=== PATIENT | female | born 1980 | race Caucasian/White ===

== ENCOUNTER 2022-12-30 12:32 | Outpatient (CLI) | payer BC, MEDICAID, SELFPAY ==
--- NOTE | 2022-12-30 13:30 | CT_ITS ---
WS: [id number] CT PARANASAL SINUSES HISTORY: evaluation of sinusis TECHNIQUE: Contiguous 2.5 mm axial images obtained through the sinuses. Images are reconstructed in s agittal and coronal planes. All CT scans at [facility] use at least one of these dose optimiz ation techniques: automated exposure control; mA and/or kV adjustment per patient size (includes targ eted exams where dose is matched to clinical indication); or iterative reconstruction. DLP: 464.68 mGy.cm COMPARISON: None available. Frontal sinuses: Normal. No air-fluid levels. Sphenoid sinus: Normal. Ethmoid sinuses: Very mild mucoperiosteal thickening in the ethmoid air cells, RIGHT greater than LEF T. Maxillary sinus: Moderate sized mucus retention cyst in the LEFT maxillary sinus. No air-fluid levels . Very small amount of mucoperiosteal thickening in the floor of the RIGHT maxillary sinus. Ostiomeatal unit: Patent ostiomeatal complexes. There is widening of the complexes from prior endosco pic surgery. Normal orbits and globes. No significant deviation of the nasal septum and no spurring. IMPRESSION: 1. No air-fluid levels within the paranasal sinuses. 2. Widely patent ostiomeatal complexes. Prior endoscopic surgery. 3. Moderate mucous retention cyst in the RIGHT maxillary sinus.
== END 2022-12-30 12:33 | disposition home or self-care (01) ==
LOC: RAD 12:32
PROVIDERS: Visit Provider Otolaryngology
DX: J32.9 Chronic sinusitis, unspecified (principal); J34.1 Cyst and mucocele of nose and nasal sinus
CPT/HCPCS: 70486

== ENCOUNTER 2023-02-07 10:09 | Day surgery (SDC) | payer BC, MEDICAID, SELFPAY ==
[2023-02-07] VITALS (9 sets, daily range): BP systolic 128–160; BP diastolic 79–98; PULSE 59–84; RESP 16–18; TEMP 36.1–36.5; O2SAT 92–100; BMI 30.6
[2023-02-07] MEDS: sodium chloride 0.9% 1,000 ML 30 ML IV (10:43)
--- NOTE | 2023-02-07 11:14 | ANES.PREANE2 ---
Pre-Anesthetic Assessment Height/Weight: Height 1.65 m Weight 83.461 kg Temp Pulse Resp BP Pulse Ox O2 Del Method 97.7 F 84 16 160/98 96 Room Air 02/07/23 10:32 02/07/23 10:32 02/07/23 10:32 02/07/23 10:32 02/07/23 10:32 02/07/23 10:32 Preop Diagnosis: Chronic sinusitis/deviated nasal septum/turbinate hypertrophy/ayo bullos Operation Date: 02/07/23 12:00 Proposed Procedures p Endoscopic Bilateral Antrostomy 13383,46983,[id number],69165,j32.9,j34.89,J31.0,j34.2,J34.3(Bilateral) - Gordon Farmer MD s Maxillary Sinusectomy(Not Applicable) - Gordon Farmer MD s Ethmoidectomy Endoscopic Bilateral Ethmoidectomy(Left) - Gordon Farmer MD s Septoplasty(Not Applicable) - Gordon Farmer MD s Bilateral Turbinate Reduction(Bilateral) - Gordon Farmer MD s Bilateral Ayo Bullosa resection(Bilateral) - Gordon Farmer MD Familial anesthetic complications: None Was Beta Mia taken within 24 hours: N/A Was Clonidine taken within 24 hours: N/A Last intake: Intake Last Liquid Date 02/06/23 Last Liquid Time 20:00 Last Solid Date 02/06/23 Last Solid Time 18:00 Social No alcohol and No tobacco Exam alert, oriented x 3, clear to auscultation bilaterally and regular rate & rhythm Airway Mallampati: Class II Dentition: full CV/HEM Hypertension GI Gastroesophageal Reflux Disease Anesthetic Plan ASA status: 2 Anesthesia: General Risk of > 500 ml blood loss (7ml/kg in children): No Medications/Allergies Home Medications Medication Instructions Recorded Confirmed Last Taken Type fluticasone propionate 50 2 spray intranasal DAILY 12 months 12/13/22 02/07/23 02/06/23 Rx mcg/actuation nasal #16 grams spray,suspension labetalol 100 mg tablet 100 mg PO DAILY 12/13/22 02/07/23 02/07/23 History montelukast 10 mg tablet 10 mg PO DAILY 12/13/22 02/07/23 02/06/23 History valsartan 160 mg tablet 160 mg PO DAILY 12/13/22 02/07/23 02/06/23 History omeprazole 20 mg capsule,delayed 20 mg PO DAILY 02/06/23 02/07/23 02/07/23 History release Allergies Allergy/AdvReac Type Severity Reaction Status Date / Time No Known Allergies Allergy Unverified 01/10/23 08:33 Current Medications Generic Name Dose Route Start Last Admin Trade Name Freq PRN Reason Stop Dose Admin Sodium Chloride 1,000 mls @ 30 mls/hr 02/07/23 10:30 02/07/23 10:43 Sodium Chloride 0.9% IV 02/08/23 10:29 30 mls/hr .Q24H JUNIOR Administration PFSH Anesthesia Medical History Hx of nasal polyp Hypertension Surgical History Hx of endoscopic sinus surgery 2002 Hx of nasal polypectomy Hx of oral surgery Hx of tubal ligation Social History Smoking and tobacco/nicotine status: current every day tobacco/nicotine user cigarettes Packs smoked per day: 0.5 Female Reproductive History Date of last menstrual period: 02/06/23 Data Anesthesia Cardiac Studies: No Data to Display
[2023-02-07 11:32] LABS: OR HCG Qualitative Urine Negative (Negative)
--- NOTE | 2023-02-07 11:54 | W.PM.OPSUD ---
Surgery/Procedure H&P Update DATE OF PROCEDURE: February 07, 2023 DATE H&P PERFORMED: 01/10/23 H&P UPDATE INFORMATION: I have reviewed H&P completed within last 30 days, I have examined patient prior to procedure and No changes to prior documentation CHANGES TO PREVIOUS DOCUMENTATION: No changes PREOP DIAGNOSIS: Chronic sinusitis/deviated nasal septum/turbinate hypertrophy/ayo bullos PRIMARY INDICATION FOR PROCEDURE: Chronic sinusitis/deviated nasal septum/turbinate hypertrophy/ayo bullosa PLANNED PROCEDURE: Operation Date: 02/07/23 12:00 Proposed Procedures p Endoscopic Bilateral Antrostomy 24174,88857,79151,45412,10901,j32.9,j34.89,J31.0,j34.2,J34.3(Bilateral) - Gordon Farmer MD s Maxillary Sinusectomy(Not Applicable) - Gordon Farmer MD s Ethmoidectomy Endoscopic Bilateral Ethmoidectomy(Left) - Gordon Farmer MD s Septoplasty(Not Applicable) - Gordon Farmer MD s Bilateral Turbinate Reduction(Bilateral) - Gordon Farmer MD s Bilateral Ayo Bullosa resection(Bilateral) - Gordon Farmer MD
[2023-02-07] MEDS: ceFAZolin 2,000 MG in sodium chloride 0.9% (plus) 50 ML 100 MG IV (11:56)
[2023-02-07] MEDS: oxymetazoline 0.05% Nasal Spray 15 mL 1 SPRAY NOSTRIL-B (12:35)
[2023-02-07] MEDS: lidocaine-epi 2% 1.7mL Cartridge (OR Only) 10.2 ML XX (12:36)
[2023-02-07] MEDS: neomycin-poly-bacitracin oint 28 gm 1 APPLIC TOPICAL (13:10)
--- NOTE | 2023-02-07 13:20 | W.PM.OPSUD ---
Surgery/Procedure H&P Update DATE OF PROCEDURE: February 07, 2023 DATE H&P PERFORMED: 01/10/23 H&P UPDATE INFORMATION: I have reviewed H&P completed within last 30 days, I have examined patient prior to procedure and No changes to prior documentation CHANGES TO PREVIOUS DOCUMENTATION: No changes PREOP DIAGNOSIS: Chronic sinusitis/deviated nasal septum/turbinate hypertrophy/ayo bullos PRIMARY INDICATION FOR PROCEDURE: Chronic sinusitis/deviated nasal septum/turbinate hypertrophy/ayo bullosa PLANNED PROCEDURE: Operation Date: 02/07/23 12:00 Proposed Procedures p Endoscopic Bilateral Antrostomy [id number],[id number],[id number],55938,j32.9,j34.89,J31.0,j34.2,J34.3(Bilateral) - Gordon Farmer MD s Maxillary Sinusectomy(Not Applicable) - Gordon Farmer MD s Ethmoidectomy Endoscopic Bilateral Ethmoidectomy(Left) - Gordon Farmer MD s Septoplasty(Not Applicable) - Gordon Farmer MD s Bilateral Turbinate Reduction(Bilateral) - Gordon Farmer MD s Bilateral Ayo Bullosa resection(Bilateral) - Gordon Farmer MD
--- NOTE | 2023-02-07 13:21 | PM.OP ---
Operative Report Date of procedure: February 07, 2023 Pre-op diagnosis: Deviated nasal septum/chronic sinusitis/turbinate hypertrophy/ayo bullosa Post-op diagnosis: Same Post-op findings: Septum in good straight midline position. Turbinates reduced to normal size inferiorly. Ayo bullosa resected. Sinuses debrided and antrostomy sites enlarged and posterior ethmoid soft tissue removed. Procedure done: Endoscopic bilateral antrostomy with maxillary sinusectomy/endoscopic left posterior ethmoidectomy/endoscopic bilateral ayo bullosa resection/septoplasty/bilateral inferior turbinate submucous resection. Implants: Implants included 2 septal splints and 2 Telfa packs coated with Neosporin ointment Specimens removed/disposition: Contents of left and right sinuses/portions of bilateral inferior turbinates/ayo bullosa bilateral middle turbinates. Pathology: Same Surgeon: Gordon Farmer MD Anesthesia: General and Local Estimated blood loss: 50 mL Complications: No complications encountered Findings: Patient with deviated nasal septum and massive 4+ inferior turbinates as well as right greater than left side ayo bullosa of middle turbinates as well as chronic bilateral maxillary sinusitis and chronic left posterior ethmoid sinusitis. Brief History: 43-year-old female patient has suffered with midface pressure congestion and nasal dyspnea. She has been treated numerous times with antibiotics and steroids to try and relieve the problems of the recurrent sinusitis. The steroid sprays did not reduce the turbinates at all. The middle turbinates would not reduce due to the ayo bullosa present. Patient therefore being brought to the operating room at this time to undergo endoscopic bilateral antrostomy with maxillary sinusectomy, left posterior ethmoidectomy, bilateral middle turbinate resection with ayo bullosa, septoplasty and bilateral inferior turbinate submucous resection. The procedure its risks and complications have been explained in detail. These risks included bleeding infection numbness scarring swelling bruising septal hematoma abscess or perforation change in sense of smell nasal dryness recurrent problems need for additional treatment potential injury to orbit and orbital contents including loss of vision or blurred vision potential injury to teeth or teeth roots CSF leak meningitis brain abscess heart attack stroke or not surviving the surgery. With these things understood informed consent was granted and witnessed. Procedure: Description of procedure: The patient was placed on the operating table in the supine position. Adequate general endotracheal tube anesthesia was obtained. The patient was repositioned into a semirecumbent position. A timeout was accomplished identifying the patient date of plan procedure allergies fire risk and medications given. With all in agreement the procedure continued. The patient's nose was packed with cottonoids soaked in 12-hour Afrin. Nasal hairs were trimmed with scissors. Afrin packs were removed and the septum middle turbinates and inferior turbinates and middle meatus areas were infiltrated with local utilizing a total of 10.8 mL of 2% Xylocaine with 1-100,000 epinephrine. After infiltration the Afrin packs were reapplied to the nose and the patient was prepped and draped in usual fashion. The Afrin packs were removed from the nose. The inferior turbinates were outfractured with a [place] elevator. The anteriormost bulbous tips from both inferior turbinates were cauterized intramurally with the needle tip Bovie. This gave some access to the nose to proceed with a septoplasty. A left hemitransfixion incision was created with a 15 blade carrying it down to the septal cartilage. A mucoperichondrial periosteal flap was then raised on the left side in all directions. Then a half round knife was used to excise the inferior strip of quadrangular cartilage that was off the crest to the left side. This was removed with a Karyn forcep. Then the quadrangular cartilage was disarticulated from the perpendicular plate of the ethmoid and vomer. A posterior tunnel was then created on the right side. The portion of the posterior septum that was excessively deviated was resected. The superior aspect was removed and will placed in saline for later replacement. Attention was then turned to the middle turbinate ayo bullosa wrist areas. Both of these were infractured with a [place] elevator. This gave access to the middle meatus on the left side. The previously created antrostomy site was enlarged with backbiting and right biting through-cutting forceps. Then the contents of the sinus which was a cyst was removed. Then the similar procedure was performed on the left side. The antrostomy sites were enlarged to greater than a centimeter in diameter. Then the endoscope was used to visualize the posterior ethmoid cells on the left side and soft tissue was removed from remaining cells posteriorly. Scope was used to verify that the maxillary sinuses contain no further disease. Now the middle turbinates were resected using endoscopic visualization to remove the ayo bullosa portions. Again more was done on the right side than the left. After all of these procedures were accomplished the superior septum was placed back into the posterior pocket and a the left hemitransfixion incision was closed loosely with interrupted 4-0 chromic suture. 2 septal splints were coated with Neosporin and 1 was applied each side of the septum. These were sutured in a through and through fashion with 3-0 Prolene. The sinuses were all suctioned clean and irrigated with saline and suctioned again. There was no sign of any active bleeding. 2 Telfa packs were cut to size coated with Neosporin and 1 was applied each side of the septum extending up into the middle meatus areas bilaterally. The mouth was suctioned clean irrigated with saline and suctioned again. No sign of active bleeding posteriorly. The face was cleansed and a drip pad was applied under the nose. Eyes were checked and found to be normal. The drapes were removed and the patient was returned to anesthesia for wake-up and extubation. She tolerated the procedure well had an estimated blood loss of 50 mL and arrived in recovery in stable condition.
[2023-02-07] MEDS: oxyCODONE-APAP 5-325 mg Tablet 1 TAB PO (14:16)
--- NOTE | 2023-02-07 14:30 | ANE.PACU2 ---
Inpatient post-anesthesia follow up: Airway intact: Yes Vital signs: Temperature 97 F Pulse Rate 62 Respiratory Rate 18 Blood Pressure 152/81 Pulse Oximetry 95 Oxygen Delivery Me thod Room Air Oxygen Flow Rate 6 Fraction of Inspir ed Oxygen Hydration adequate: Yes Nausea and vomiting: No Pain level: 1 Mental status: Baseline
== END 2023-02-07 14:40 | disposition home or self-care (01) ==
PROVIDERS: Anesthesiology; PCP Internal Medicine; Visit Provider Otolaryngology
PROC: (CPT 30140; principal; 2023-02-07 12:00)
PROC: (CPT 31225; 2023-02-07 12:00)
PROC: (CPT 30140; 2023-02-07 12:00)
PROC: (CPT 30520; 2023-02-07 12:00)
PROC: (CPT 30140; 2023-02-07 12:00)
PROC: (CPT 30140; 2023-02-07 12:00)
DX: J34.2 Deviated nasal septum (principal); J32.9 Chronic sinusitis, unspecified; J34.3 Hypertrophy of nasal turbinates; J34.9 Unspecified disorder of nose and nasal sinuses; I10 Essential (primary) hypertension; K21.9 Gastro-esophageal reflux disease without esophagitis; F17.210 Nicotine dependence, cigarettes, uncomplicated
CPT/HCPCS: 30140; 30520; 31240; 31254; 31267; 81025; 84703; 88305; 88311; J0131; J0690; J1100; J1170; J2250; J2405; J2704; J2710; J3010; J3490; J7030